=== PATIENT | male | born 1950 | race Two or more races ===

== ENCOUNTER 2023-04-18 08:56 | Outpatient (CLI) | payer MEDICARE, OTHER ==
[2023-04-18 10:22] LABS: APPEARANCE,URINE CLEAR (CLEAR); BILIRUBIN,URINE NEGATIVE (NEGATIVE); BLOOD, URINE NEGATIVE Ery/uL (NEGATIVE); COLOR,URINE YELLOW (YELLOW); KETONES,URINE NEGATIVE (NEGATIVE); LEUKOCYTE ESTERASE ,URINE NEGATIVE (NEGATIVE); NITRITE, URINE NEGATIVE (NEGATIVE); PH,URINE 7.5 (5.0-8.0); PROTEIN,URINE NEGATIVE (NEGATIVE); UGLUCOSE NEGATIVE (NEGATIVE); UROBILINOGEN,URINE 0.2 EU/dL (0.2)
[2023-04-18 10:27] LABS: CALCIUM, SERUM 9.2 mg/dL (8.5-10.1); CREATININE 0.8 mg/dL (0.6-1.3); POTASSIUM 3.8 mmol/L (3.5-5.1)
[2023-04-18 10:48] LABS: BASOPHILS % (AUTO) 0.3 % (0.0-2.0); EOSINOPHILS # (AUTO) 0.2 K/uL (0.0-0.7); EOSINOPHILS % (AUTO) 3.5 % (0.0-6.0); HEMATOCRIT 45 % (39-51); HEMOGLOBIN 15.4 g/dL (13.5-17.5); LYMPHOCYTES # (AUTO) 1.7 K/uL (0.8-4.8); LYMPHOCYTES % (AUTO) 27.6 % (20.0-44.0); MEAN CORPUSCULAR HEMOGLOBIN 30 PG (26.0-33.0); MEAN CORPUSCULAR HGB CONC 34 g/dl (31.0-36.0); MEAN CORPUSCULAR VOLUME 86 fL (80-96); MONOCYTES # (AUTO) 0.4 K/uL (0.1-1.30); MONOCYTES % (AUTO) 6.8 % (2.0-12.0); NEUTROPHILS # (AUTO) 3.8 K/uL (1.8-8.9); NEUTROPHILS % (AUTO) 61.8 % (43.0-81.0); PLATELET COUNT (AUTO) 185 K/uL (150-450); RED BLOOD CELL COUNT(AUTO) 5.22 MIL/uL (4.5-6.0); RED CELL DISTRIBUTION WIDTH 13.1 % (11.5-15.0); WHITE BLOOD COUNT (AUTO) 6.1 K/uL (4.3-11.0)
[2023-04-18 11:50] LABS: INR 1.01 (0.91-1.10); PARTIAL THROMBOPLASTIN TIME 30.9 SEC (24.3-34.3); PROTHROMBIN TIME 10.7 SECS (9.2-11.1)
== END 2023-04-18 23:59 | disposition home or self-care (01) ==
LOC: LAB 08:56
PROVIDERS: ATTEND Internal Medicine Pulmonary Disease
DX: Z01.818 Encounter for other preprocedural examination (principal); I45.10 Unspecified right bundle-branch block
CPT/HCPCS: 36415; 71045-TC; 80048-TC; 85025-TC; 85610-TC; 85730-TC

== ENCOUNTER 2023-04-22 05:38 | Inpatient (IN) | payer MEDICARE, OTHER ==
[~2023-04-22] VITALS: Ht 165.1 cm; Wt 84.1 kg
[2023-04-22] MEDS ORDERED: LIDOCAINE 2%-EPI 1:100,000 30 ML VIAL ONE (07:03)
[2023-04-22] MEDS ORDERED: VANCOMYCIN 1 GM VIAL ONE (07:04)
[2023-04-22] MEDS ORDERED: dexaMETHasone SOD PHOSPHATE 10 MG/ML VIAL ONE (07:04)
[2023-04-22] MEDS ORDERED: SEVOFLURANE 250 ML BOTTLE IH ONE (07:14)
[2023-04-22] MEDS ORDERED: FENTANYL PF 250MCG/5ML AMPUL ONE (08:24)
[2023-04-22] MEDS ORDERED: HYDROMORPHONE 1 MG/1 ML DISP.SYRIN IV PRN (11:30)
[2023-04-22] MEDS ORDERED: ACETAMINOPHEN 325 MG TABLET PO PRN (11:30)
[2023-04-22] MEDS ORDERED: IV NS 0.9% 1,000 ML IV PRN (11:30)
[2023-04-22] MEDS ORDERED: ONDANSETRON HCL/PF 4 MG/2 ML VIAL IV PRN (11:30)
[2023-04-22] MEDS ORDERED: ATEN50TA PO (11:47)
[2023-04-22] MEDS ORDERED: OLME1TAB90 PO (11:47)
[2023-04-22] MEDS ORDERED: ROSU40TA23 PO (11:47)
[2023-04-22] MEDS ORDERED: ERGO500093 PO (11:47)
[2023-04-22] MEDS ORDERED: AMOX1TAB16 PO (11:48)
[2023-04-22] MEDS ORDERED: HYDR-3980 PO (11:48)
[2023-04-22 16:00] VITALS: BP 165/89; TEMP 98.6; O2SAT 97
[2023-04-22] MEDS: ATENOLOL 50 MG TABLET PO SCH (16:58)
[2023-04-22 20:00] VITALS: BP 161/74; TEMP 98.4; O2SAT 97
[2023-04-22] MEDS: VANCOMYCIN 1 GM in IV D5W 250ml IV SCH (20:08)
[2023-04-23 08:00] VITALS: BP 150/73; TEMP 97.9; O2SAT 98
[2023-04-23] MEDS: VANCOMYCIN 1 GM in IV D5W 250ml IV SCH (08:55)
[2023-04-23] MEDS: ATENOLOL 50 MG TABLET PO SCH (08:56)
[2023-04-23 08:57] VITALS: BP 150/73
[2023-04-23] MEDS ORDERED: ATORVASTATIN 40 MG TABLET PO SCH (09:00)
[2023-04-23] MEDS ORDERED: LOSARTAN/HCTZ 50-12.5MG/ 1 EA TABLET PO SCH (09:00)
[2023-04-23] MEDS ORDERED: LOSARTAN POTASSIUM 50 MG TABLET PO SCH (09:00)
[2023-04-24] MEDS ORDERED: ERGOCALCIFEROL (VITAMIN D 2) 50,000 UNIT CAPSULE PO SCH (09:00)
== END 2023-04-23 14:30 | disposition home or self-care (01) | DRG 516 ==
LOC: DS 05:38 → MED 05:39
PROVIDERS: ADMIT Nurse Practitioner Family; ATTEND Nurse Practitioner Family
PROC: 0NSR04Z Reposition Maxilla with Internal Fixation Device, Open Approach (ICD-10-PCS; principal; 2023-04-22)
PROC: 0NSV04Z Reposition Left Mandible with Internal Fixation Device, Open Approach (ICD-10-PCS; 2023-04-22)
PROC: 0NST04Z Reposition Right Mandible with Internal Fixation Device, Open Approach (ICD-10-PCS; 2023-04-22)
PROC: 0NUR07Z Supplement Maxilla with Autologous Tissue Substitute, Open Approach (ICD-10-PCS; 2023-04-22)
PROC: 0NUV07Z Supplement Left Mandible with Autologous Tissue Substitute, Open Approach (ICD-10-PCS; 2023-04-22)
PROC: 0NUT07Z Supplement Right Mandible with Autologous Tissue Substitute, Open Approach (ICD-10-PCS; 2023-04-22)
PROC: 09UR07Z Supplement Left Maxillary Sinus with Autologous Tissue Substitute, Open Approach (ICD-10-PCS; 2023-04-22)
PROC: 09UQ07Z Supplement Right Maxillary Sinus with Autologous Tissue Substitute, Open Approach (ICD-10-PCS; 2023-04-22)
PROC: 0NBV0ZX Excision of Left Mandible, Open Approach, Diagnostic (ICD-10-PCS; 2023-04-22)
PROC: 0NBR0ZX Excision of Maxilla, Open Approach, Diagnostic (ICD-10-PCS; 2023-04-22)
PROC: 0NBT0ZX Excision of Right Mandible, Open Approach, Diagnostic (ICD-10-PCS; 2023-04-22)
DX: M84.48XA Pathological fracture, other site, initial encounter for fracture (principal); M87.88 Other osteonecrosis, other site; D48.1 Neoplasm of uncertain behavior of connective and other soft tissue; M27.2 Inflammatory conditions of jaws; J32.0 Chronic maxillary sinusitis; I10 Essential (primary) hypertension; Z85.46 Personal history of malignant neoplasm of prostate; Z79.899 Other long term (current) drug therapy; E78.5 Hyperlipidemia, unspecified; R94.31 Abnormal electrocardiogram [ECG] [EKG]; M27.40 Unspecified cyst of jaw
CPT/HCPCS: 82962-TC; 87081-TC; 88305-TC; 88311-TC; 88312-TC; C1713; G0378; J0330; J1100; J2370; J2704; J3010; J3370; J3490; J7030; J7060

== ENCOUNTER 2023-09-23 09:24 | Inpatient (IN) | payer MEDICARE, OTHER ==
[~2023-09-23 09:24] MED LIST: AMOX1TAB16 PO; ATEN50TA PO; ERGO500093 PO; HYDR-3980 PO; OLME1TAB90 PO; ROSU40TA23 PO
[2023-09-23] MEDS ORDERED: LIDOCAINE 2%-EPI 1:100,000 30 ML VIAL ONE (11:23)
[2023-09-23] MEDS ORDERED: dexaMETHasone SOD PHOSPHATE 2 ML ONE (11:23)
[2023-09-23] MEDS ORDERED: VANCOMYCIN 1 GM VIAL ONE (11:25)
[2023-09-23 15:58] VITALS: BP 161/95; TEMP 98.7; O2SAT 97
[2023-09-23] MEDS ORDERED: HYDROMORPHONE 1 MG/1 ML DISP.SYRIN IV PRN (16:30)
[2023-09-23] MEDS ORDERED: ACETAMINOPHEN 325 MG TABLET PO PRN (16:30)
[2023-09-23] MEDS ORDERED: ONDANSETRON HCL/PF 4 MG/2 ML VIAL IV PRN (16:30)
[2023-09-23] MEDS: ATENOLOL 50 MG TABLET PO SCH (16:33)
[2023-09-23] MEDS: HYDROCODONE/APAP 5/325MG TABLET PO PRN (16:34)
[2023-09-23] MEDS: LOSARTAN POTASSIUM 50 MG TABLET PO SCH (21:14)
[2023-09-23] MEDS: HYDROCHLOROTHIAZIDE 25 MG TABLET PO SCH (21:17)
[2023-09-23] MEDS: VANCOMYCIN 1 GM in IV D5W 250ml IV SCH (22:14)
[2023-09-23] MEDS: IV NS 0.9% 1,000 ML IV PRN (22:35)
[2023-09-24 08:00] VITALS: BP 141/71; TEMP 98.8; O2SAT 96
[2023-09-24] MEDS: VALSARTAN 80 MG TABLET PO SCH (08:35)
[2023-09-24] MEDS: HYDROCHLOROTHIAZIDE 25 MG TABLET PO SCH (08:35)
[2023-09-24 08:36] VITALS: BP 141/71
[2023-09-24] MEDS: ATORVASTATIN 40 MG TABLET PO SCH (08:36)
== END 2023-09-24 12:55 | disposition home health service (06) | DRG 908 ==
LOC: DS 09:24 → MED 09:28
PROVIDERS: ADMIT Nurse Practitioner Acute Care; ATTEND Nurse Practitioner Acute Care
PROC: 0NUT0JZ Supplement Right Mandible with Synthetic Substitute, Open Approach (ICD-10-PCS; principal; 2023-09-23)
PROC: 0NPW04Z Removal of Internal Fixation Device from Facial Bone, Open Approach (ICD-10-PCS; 2023-09-23)
PROC: 0WB30ZX Excision of Oral Cavity and Throat, Open Approach, Diagnostic (ICD-10-PCS; 2023-09-23)
PROC: 0NBV0ZX Excision of Left Mandible, Open Approach, Diagnostic (ICD-10-PCS; 2023-09-23)
PROC: 0NBR0ZX Excision of Maxilla, Open Approach, Diagnostic (ICD-10-PCS; 2023-09-23)
PROC: 0NBT0ZX Excision of Right Mandible, Open Approach, Diagnostic (ICD-10-PCS; 2023-09-23)
PROC: 0NUV0JZ Supplement Left Mandible with Synthetic Substitute, Open Approach (ICD-10-PCS; 2023-09-23)
PROC: 0NHV04Z Insertion of Internal Fixation Device into Left Mandible, Open Approach (ICD-10-PCS; 2023-09-23)
DX: T86.831 Bone graft failure (principal); S02.609K Fracture of mandible, unspecified, subsequent encounter for fracture with nonunion; T84.7XXA Infection and inflammatory reaction due to other internal orthopedic prosthetic devices, implants and grafts, initial encounter; X58.XXXD Exposure to other specified factors, subsequent encounter; E78.5 Hyperlipidemia, unspecified; I10 Essential (primary) hypertension; Z79.899 Other long term (current) drug therapy; Y92.009 Unspecified place in unspecified non-institutional (private) residence as the place of occurrence of the external cause; Y83.2 Surgical operation with anastomosis, bypass or graft as the cause of abnormal reaction of the patient, or of later complication, without mention of misadventure at the time of the procedure; M60.9 Myositis, unspecified; I45.10 Unspecified right bundle-branch block
CPT/HCPCS: 88300-TC; 88305-TC; 88311-TC; A4223; C1713; G0378; J0461; J0690; J1100; J2704; J3370; J3490; J7030; J7060